=== PATIENT | male | born 1990 | race American Indian/Alaskan Native ===

== ENCOUNTER 2016-09-27 15:36 | Emergency (ER) | payer SELFPAY ==
[2016-09-27 15:54] VITALS: BP 131/86
[2016-09-27] MEDS ORDERED: NACL 0.9% 1000 ML 1,000 ML IV ONE (18:33)
[2016-09-27] MEDS ORDERED: PEPCID IV ONE (18:33)
[2016-09-27] MEDS ORDERED: ZOFRAN IV ONE (18:33)
--- NOTE | 2016-09-27 18:45 | Emergency Department Report ---
Chief Complaint: Nausea/Vomiting/Diarrhea Stated Complaint: CANT KEEP FOOD DOWN/EMESIS Time Seen by Provider: 09/27/16 18:30 - HPI History of Present Illness: PT c/o N/V and LUQ abd pain since . PT states his symptoms started after taking his kids to [place]. PT states his children are not sick. PT denies hx of abd surgeries. PT does report ETOH use - ROS Review of Systems: + n +v + abd pain - Exam Vital Signs: Vital Signs 09/27/16 15:52 Temperature 98.1 F Pulse Rate 96 H Respiratory 16 Rate Blood Pressure 131/86 O2 Sat by Pulse 100 Oximetry Physical Exam: PT looks well, non toxic abd soft, mild tenderness to LUQ bs wnl MSE screening note: Focused history and physical exam performed. Due to findings the following was ordered: labs, fluids, meds ED Disposition for MSE Condition: Stable Referrals: PRIMARY CARE, [Primary Care Provider] - 3-5 Days
[2016-09-27 19:04] LABS: Basophils % (Auto) 0.3 % (0.0-1.8); Eosinophils % (Auto) 2.3 % (0.0-4.3); Hematocrit 42.3 % (35.5-45.6); Hemoglobin 13.7 gm/dl (11.8-15.2); Mean Corpuscular HGB Conc 32 % (32-34); Mean Corpuscular Hemoglobin 26 pg (28-32); Mean Corpuscular Volume 81 fl (84-94); Platelet Count 253 K/mm3 (140-440); Red Blood Count 5.24 M/mm3 (3.65-5.03); Red Cell Distribution Width 13.8 % (13.2-15.2); White Blood Count 5.5 K/mm3 (4.5-11.0)
[2016-09-27 19:20] LABS: Bilirubin,Urine NEG (Negative); Blood,Urine NEG (Negative); Ketones,Urine NEG (Negative); Leukocyte Esterase,Urine NEG (Negative); Mucus,Urine 1+ /HPF; Nitrite,Urine NEG (Negative); Protein,Urine <15 mg/dL mg/dL (Negative)
[2016-09-27 19:20] LABS: Alanine Aminotransferase 23 units/L (7-56); Albumin 4.3 g/dL (3.9-5); Albumin/Globulin Ratio 1.2 %; Alkaline Phosphatase 70 units/L (35-129); Anion Gap 15 mmol/L; BUN/Creatinine Ratio 11.11; Bilirubin,Total 0.3 mg/dL (0.1-1.2); Blood Urea Nitrogen 10 mg/dL (9-20); Calcium 9.3 mg/dL (8.4-10.2); Carbon Dioxide 28 mmol/L (22-30); Chloride 101.5 mmol/L (98-107); Glucose 74 mg/dL (75-100); Lipase 30 units/L (13-60); Sodium 140 mmol/L (137-145); Total Protein 7.9 g/dL (6.3-8.2)
--- NOTE | 2016-09-27 20:21 | Emergency Department Report ---
HPI - General Chief Complaint: Nausea/Vomiting/Diarrhea Time Seen by Provider: 09/27/16 18:30 - HPI HPI: Patient is a 26-year-old male with no past medical history presents to ED complaining of nausea vomiting since . Since that couple episodes of vomiting the past 4 days. Patient states some time after he eats certain foods he feels that he has vomited. Patient denies loss of appetite. Patient states he is able to eat appropriately. Patient denies any diarrhea. he denies any recent medication. Patient denies fever/chills/nausea/vomiting/abdominal pains and shortness of breath dizziness as chest pain or any other problems. ED Past Medical Hx - Past Medical History Previous Medical History?: No - Surgical History Past Surgical History?: No - Social History Smoking Status: Never Smoker Substance Use Type: Alcohol - Medications Home Medications: Home Medications Medication Instructions Recorded Confirmed Last Taken Type Acetaminophen/Codeine [Tylenol #3] 1 tab PO Q6H PRN #20 tab 09/21/15 Unknown Rx Amoxicillin [Trimox CAP] 500 mg PO Q8H #30 capsule 09/21/15 Unknown Rx Loratadine [Claritin] 10 mg PO DAILY #30 tablet 09/21/15 Unknown Rx Prednisone [predniSONE 10 mg 10 mg PO .TAPER #1 tab.ds.pk 09/21/15 Unknown Rx (6-Day Pack, 21 Tabs)] Famotidine [Pepcid] 20 mg PO BID #24 tablet 09/27/16 Unknown Rx Ondansetron [Zofran Odt] 4 mg PO Q8H #20 tab.rapdis 09/27/16 Unknown Rx ED Review of Systems ROS: Stated complaint: CANT KEEP FOOD DOWN/EMESIS Other details as noted in HPI Constitutional: denies: chills, fever Eyes: denies: eye pain, eye discharge, vision change ENT: denies: ear pain, throat pain Respiratory: denies: cough, shortness of breath, wheezing Cardiovascular: denies: chest pain, palpitations Endocrine: no symptoms reported Gastrointestinal: nausea, vomiting. denies: abdominal pain, diarrhea Genitourinary: denies: urgency, dysuria, frequency, discharge Musculoskeletal: denies: back pain, joint swelling, arthralgia Skin: denies: rash, lesions Neurological: denies: headache, weakness, paresthesias Psychiatric: denies: anxiety, depression Hematological/Lymphatic: denies: easy bleeding, easy bruising Physical Exam - Physical Exam Vital Signs: Vital Signs 09/27/16 15:52 Temperature 98.1 F Pulse Rate 96 H Respiratory 16 Rate Blood Pressure 131/86 O2 Sat by Pulse 100 Oximetry Physical Exam: GENERAL: Alert and oriented x3, no apparent distress, Normal Gait, atraumatic. HEAD: Head is normocephalic and a-traumatic. MOUTH:Mouth is well hydrated and without lesions. Tonsils nonerythematous or swollen, Uvula midline, Tongue not elevated. Mucous membranes are moist. Posterior pharynx clear, no exudate or lesions. Patent airways. NECK: Supple. Non edematous, No carotid bruits. No lymphadenopathy or thyromegaly. LUNGS: Symetrical with respiration, No wheezing, no rales or crackles, CTAB. HEART: S1, S2 present, regular rate and rhythm without murmur, no rubs, no gallops. ABDOMEN: No organomegaly was noted,Positive bowel sounds, soft, and non- distended. . Nontender to palpation on all Quadrants, NO CVA tenderness. EXTREMITIES/MUSCULOSKELETAL: No cyanosis, clubbing, rash, lesions or edema. Full ROM bilaterally. UE/LE Pulses 2+ bilaterally. LE and UE 5+ strength bilaterally. NEUROLOGIC: No focal Deficit, Cranial nerves II through XII are grossly intact. No loss of sensation, PSYCHIATRIC: Mood is congruent with affect, denies suicidal or homicidal ideations. SKIN: Warm and dry, No lesions, No ulceration or induration present. ED Course Vital Signs 09/27/16 15:52 Temperature 98.1 F Pulse Rate 96 H Respiratory 16 Rate Blood Pressure 131/86 O2 Sat by Pulse 100 Oximetry ED Medical Decision Making - Lab Data Result diagrams: 09/27/16 18:44 09/27/16 18:44 - Medical Decision Making 26-year-old male presents with nausea /vomiting ED course: CBC, CMP, urinalysis ordered. All labs are normal. Discussed this with patient. He received 1 L of normal saline, Pepcid and Zofran during the ED stay. Discussed the patient will follow up with tapping machine operator automatic as referred in symptoms does not get better. Discussed over the home medication of Zofran to help with nausea and vomiting. he had no vomiting episodes during the ED stay. Patient is resting comfortable patient is not in any acute distress. Sense of follow-up with primary care physician as well as GI. - Differential Diagnosis 1. Gastritis 2. Acid reflux 3. Nonspecific nausea or vomiting Critical care attestation.: If time is entered above; I have spent that time in minutes in the direct care of this critically ill patient, excluding procedure time. ED Disposition Clinical Impression: Nausea & vomiting Qualifiers: Vomiting type: unspecified Vomiting Intractability: non-intractable Qualified Code(s): R11.2 - Nausea with vomiting, unspecified Disposition: DISCHARGED TO HOME OR SELFCARE Is pt being admited?: No Does the pt Need Aspirin: No Condition: Stable Instructions: Gastritis (ED), Acute Nausea and Vomiting (ED) Additional Instructions: Follow-up with tapping machine operator automatic as discussed and deferred. Monitor diet. Take medications as prescribed. If Symptoms get worse return to ED Prescriptions: Famotidine [Pepcid] 20 mg PO BID #24 tablet Ondansetron [Zofran Odt] 4 mg PO Q8H #20 tab.rapdis Referrals: [facility]Outside] - 3-5 Days SHERRELL HERRERA MD [Referring] - 3-5 Days SARTHAK ABDALLA MD [Staff Physician] - 3-5 Days SOFIA SIMON MD [Staff Physician] - 3-5 Days AZRA KOCH MD [Staff Physician] - 3-5 Days PRIMARY [facility]ARE, [Primary Care Provider] - 3-5 Days GARETT CADET MD [Referring] - 3-5 Days Forms: Work/School Release Form(ED) Time of Disposition: 20:23
== END 2016-09-27 20:47 | disposition home or self-care (01) ==
LOC: ED 15:36
DX: R11.2 Nausea with vomiting, unspecified (principal)
CPT/HCPCS: 36415; 80053; 81001; 83690; 85025; 96361; 96374; 96375; 99283; J2405; J7030